=== PATIENT | male | born 1990 | race African-American/Black ===

== ENCOUNTER 2025-08-15 13:45 | Emergency (ER) | payer OTHER ==
[~2025-08-15] VITALS: Ht 182.9 cm; Wt 102.1 kg
[2025-08-15 14:35] VITALS: O2SAT 100
[2025-08-15] MEDS ORDERED: DEXAMETHASONE SODIUM PHOSPHATE 4 MG/ML VIAL IM ONE (15:30)
[2025-08-15] MEDS ORDERED: KETOROLAC TROMETHAMINE 60 MG VIAL IM ONE ×2 (15:30→15:31)
[2025-08-15] MEDS ORDERED: ORPHENADRINE CITRATE 30 MG/ML AMPUL IM ONE (15:30)
[2025-08-15] MEDS ORDERED: ACETAMINOPHEN 500 MG GEL..CAP PO ONE ×2 (15:30→15:32)
[2025-08-15] MEDS ORDERED: ORPHENADRINE CITRATE 30 MG/ML AMPUL ONE (15:31)
[2025-08-15] MEDS ORDERED: DEXAMETHASONE SODIUM PHOSPHATE 4 MG/ML VIAL ONE (15:32)
[2025-08-15] MEDS ORDERED: IBU600 MG PO (19:58)
[2025-08-15] MEDS ORDERED: NORFLEX100MG PO (19:58)
[2025-08-15] MEDS ORDERED: PEPCID AC20 MG PO (19:58)
[2025-08-15 20:33] VITALS: BP 147/82
== END 2025-08-15 20:34 | disposition home or self-care (01) ==
LOC: ER 13:46
DX: S49.82XA Other specified injuries of left shoulder and upper arm, initial encounter (principal); Y08.89XA Assault by other specified means, initial encounter; Y93.89 Activity, other specified; Y92.89 Other specified places as the place of occurrence of the external cause; Z88.8 Allergy status to other drugs, medicaments and biological substances; M79.602 Pain in left arm